=== PATIENT | female | born 1965 | race African-American/Black ===

== ENCOUNTER 2016-12-01 17:55 | Inpatient (IN) | payer OTHER ==
--- NOTE | ~2016-12-01 | DS ---
Unit #: [id number] #: [id number] Patient: EUGENE TIJERINA [id number] [facility] [address] [place] [address] [id number] MR#: [id number] NAME: EUGENE TIJERINA ROOM: [facility] Age: 51 Sex: F Admission Date: 12/01/2016 : 1965 Discharge Date: 12/04/2016 Attending Physician: Gene Be M.D. Primary Care Physician: Vik Farrar Sr., M.D. DISCHARGE SUMMARY JOB NOTE: PATIENT NAME UNDECIPHERABLE REASON FOR ADMISSION The patient is a 51-year-old white female with history of schizoaffective disorder, admitted after presenting with symptoms of increasing psychosis. HOSPITAL COURSE The patient was admitted to the [address] [place] [address] unit and placed on suicide precautions. It was learned that her last Invega Sustenna shot had not been received since early October. Accordingly, arrangements were made for the patient to receive an Invega Sustenna shot of 156 mg strength on 12/04 at the time of discharge. The patient was at that time brighter and denied suicidal or homicidal ideation or psychotic symptoms. Discharge was as per her request ordered. FINAL DIAGNOSES Schizoaffective disorder. DISPOSITION ON DISCHARGE The patient is discharged on following medications; Invega Sustenna 156 mg q.28 days, last dose given 12/04/2016. FOLLOWUP The patient will follow up through the auspices of [facility]. PROGNOSIS Fair. Dictated by... Gene Be M.D. CB/pedro TD: 12/05/2016 03:51 JOB #: [id number] Unit #: [id number] #: [id number] Patient: EUGENE TIJERINA DISCHARGE SUMMARY X Gene Be MD X DISCHARGE SUMMARY
--- NOTE | ~2016-12-01 | PA ---
Unit #: [id number] #: [id number] Patient: EUGENE TIJERINA [id number] [place] [address] [id number] MR#: [id number] NAME: EUGENE TIJERINA ROOM: 14 Age: 51 Sex: F Admission Date: 12/01/2016 : 1965 Date of Assessment: 12/02/2016 Attending Physician: Gene Be M.D. Admitting Physician: Gene Be M.D. Primary Care Physician: Vik Farrar Sr., M.D. PSYCHIATRIC ASSESSMENT IDENTIFYING INFORMATION The patient is a 51-year-old female who carries a diagnosis of schizoaffective disorder. She is admitted after she had presented to the [facility] reporting positive delusional thinking. INFORMANT(S) The patient, reliability is poor. CHIEF COMPLAINT My family is trying to kill me. HISTORY OF PRESENT ILLNESS The patient is a 51-year-old female who carries a diagnosis of schizoaffective disorder at the time of her last discharge from this facility when she was carried fro by this physician. Her medications included Depakote, Latuda. At some point along the line she has apparently been switched to Invega Sustenna but it is unclear when she last received this medication. The patient is presently homeless per report. She reports delusional thinking regarding her family stating that "they were sending people to touch me down there" pointing to her pelvic area. She also reports that she is fearful that she will have to harm her family in order to be safe herself. The patient reports no abuse of psychoactive substances. She does complain of poor sleep. The chart seems to indicate that the patient did receive her Invega shot in October of 2016. For more complete history of present illness please refer to previous dictated notes. PAST PSYCHIATRIC HISTORY Reviewed no changes. PAST MEDICAL HISTORY Reviewed no changes. MEDICATIONS 1. Invega Sustenna 2. Ibuprofen ALLERGIES None. FAMILY HISTORY Reviewed no changes. Unit #: [id number] #: [id number] Patient: EUGENE TIJERINA SOCIAL HISTORY Apart from the patient's current homelessness her social history is unchanged. MENTAL STATUS EXAMINATION At this time reveals the patient to be a well-developed, well-nourished somewhat disheveled female appearing her stated age. She is in no apparent physical distress at the time of examination. She is awake, alert, and oriented in all spheres. Her mood is mildly dysphoric. Her affect blunted and strained. Her speech is generally relevant and coherent. There are no gross deficits in memory or cognition noted. Intelligence is judged to be in the average range based on fund of knowledge. The patient is generally cooperative throughout the interview. She is currently denying suicidal or homicidal ideation. She does endorse positive psychotic and paranoid thinking. Her judgment and insight appear egregiously impaired. ASSETS AND LIABILITIES ASSETS: To be assessed. LIABILITIES: Lack of resources. ADMITTING DIAGNOSES Schizoaffective disorder. PSYCHIATRIC PLAN/TREATMENT GOALS The patient remains hospitalized for safety and stabilization. We will attempt to ascertain when and where the patient received her last Invega Sustenna dose and we will provide that medication if in fact is it due at the time of admission. In the meantime we will supplement with p.o. Invega as needed. ESTIMATED LENGTH OF STAY Five to seven days with followup to take place through the auspices of [facility]. Dictated by... Gene Be M.D. MARCI/laura TD: 12/02/2016 21:47 JOB #: [id number] PSYCHIATRIC ASSESSMENT X Gene Be MD X PSYCHIATRIC ASSESSMENT
--- NOTE | ~2016-12-01 | HP ---
Unit #: [id number] #: [id number] Patient: EUGENE TIJERINA [id number] [place] [address] [id number] MR#: [id number] NAME: EUGENE TIJERINA ROOM: 14 Age: 51 Sex: F Admission Date: 12/01/2016 : 1965 Attending Physician: Gene Be M.D. Admitting Physician: Gene Be M.D. Primary Care Physician: Vik Farrar Sr., M.D. HISTORY AND PHYSICAL HISTORY OF PRESENT ILLNESS The patient is a 51-year-old female admitted to [address] [place] [address] on 12/01/2106 for psychotic behaviors. PAST MEDICAL HISTORY 1. Anemia 2. Hypertension 3. Nicotine dependence PAST SURGICAL HISTORY 1. Bilateral tubal ligations 2. Hernia surgery 3. Cholecystectomy 4. Cyst removal from her throat SOCIAL HISTORY The patient is unemployed and homeless. She smokes one pack of cigarettes per day. FAMILY MEDICAL HISTORY Noncontributory. ALLERGIES No known drug allergies. CURRENT MEDICATIONS Invega. REVIEW OF SYSTEMS CONSTITUTIONAL: No fever or chills. HEENT: Denies any sore throat, ear pain or runny nose. CARDIOVASCULAR: Denies chest pain, irregular heart rhythm or palpitations. CHEST: Denies shortness of breath or cough. No hemoptysis. GASTROINTESTINAL: Denies nausea, vomiting, diarrhea or chronic constipation. ENDOCRINE: Denies history of increased thirst or urination. No recent significant weight loss or gain. GENITOURINARY: Denies dysuria, frequency, or hematuria. SKIN: Denies any rashes. HEMATOLOGIC: Denies history of increased bleeding or bruising. MUSCULOSKELETAL: Denies any hot, swollen joints. No generalized muscle pain. NEUROLOGIC: Denies problems with vision or speech. No frequent, severe Unit #: [id number] #: [id number] Patient: EUGENE TIJERINA headaches. No numbness, tingling or weakness in any extremities. Denies loss of bladder or bowel control. PHYSICAL EXAM GENERAL: She is awake, alert and oriented in no acute distress. VITAL SIGNS: Temperature 97.6, heart rate 69, respiration 18, blood pressure 119/86. HEIGHT: 5'9". WEIGHT: 191 pounds. SKIN: Warm and dry without rash or lesion. HEENT: Normocephalic. TMs not viewed. Oral and nasal passages clear. Conjunctivae clear. PERRLA. EOMs intact. NECK: Supple without lymphadenopathy or thyromegaly. HEART: Regular rate and rhythm without murmur. LUNGS: Clear. ABDOMEN: Soft, nontender. : Not done. EXTREMITIES: No evidence of cyanosis, clubbing or edema. Moves all without focal deficit. NEUROLOGICAL: Grossly within normal limits. Cranial Nerves: II: Visual baldwin are intact. III, IV AND : Extraocular movements are intact. Pupils are equal, round and reactive to light. V: Facial sensation is grossly normal. VII: Facial movements and expression are normal. VIII: Auditory acuity grossly intact. IX, X: Uvula is midline. Phonation is normal. XI: Patient shrugs shoulders and turns head normally. XII: Tongue protrudes in the midline. Sensory and Motor Function: Sensory and motor sensation is grossly normal. Motor: moves all extremities well. IMPRESSION 1. Psychiatric admission. 2. Anemia. 3. Hypertension. 4. Nicotine dependence. RECOMMENDATIONS Psychiatric per psychiatrist. MEDICAL: No contraindication to participate in facility activities. MEDICAL PROGNOSIS Good. MEDICAL CONDITION Stable. Dictated by... Eveline Nichols/laura TD: 12/03/2016 03:55 Unit #: [id number] #: [id number] Patient: EUGENE TIJERINA JOB #: [id number] HISTORY AND PHYSICAL X KEIRY MARCUM APRN X HISTORY AND PHYSICAL
--- NOTE | ~2016-12-01 | PN ---
Unit #: [id number] #: [id number] Patient: EUGENE TIJERINA [id number] [facility] [address] [place] [address] [id number] MR#: [id number] NAME: EUGENE TIJERINA ROOM: P122 Age: 51 Sex: F Admission Date: 12/01/2016 : 1965 Attending Physician: Gene Be M.D. Admitting Physician: Gene Be M.D. Primary Care Physician: Vik Farrar Sr., M.D. [facility] PROGRESS NOTES DATE 12/03/2016 DISCUSSION We have learned that the patient's last dose of Invega Sustenna was given in early October. We will order the Invega Sustenna injection be given and hope to discharge shortly thereafter as the patient appears significantly improved today. Dictated by... Gene Be M.D. CB/laura TD: 12/03/2016 23:50 JOB #: [id number] [facility] PROGRESS NOTES X Gene Be MD X PROGRESS NOTE
[~2016-12-01 17:55] MED LIST: ABILIFY PO; FLEXERIL PO; HCTZ PO; KETOPROFEN PO; NORVASC PO; PHENERGAN25 MG PO; RESTORIL7.5 MG; VICODIN 5/1 TAB 5/50 PO; [UNRECOGNIZED DRUG - OTHER]
[2016-12-01 23:29] LABS: URINE SOURCE CLEAN CATCH
[2016-12-01 23:41] LABS: URINE APPEARANCE CLEAR; URINE BILIRUBIN NEG (NEG); URINE BLOOD 1+ (NEG); URINE COLOR YELLOW; URINE GLUCOSE NEG (NEG); URINE KETONE NEG (NEG); URINE LEUKOCYTE ESTERASE NEG (NEG); URINE NITRATE NEG (NEG); URINE PROTEIN NEG (NEG); URINE SPECIFIC GRAVITY 1.021 (1.003-1.035); URINE UROBILINOGEN 0.2 MG/DL (NEG)
[2016-12-01 23:44] LABS: U HYALINE CASTS AUWI 0-2 /[LPF]; URINE BACTERIA AUWI 1+ (NEGATIVE); URINE SQUAMOUS EPITHELIAL CELL OCC /[HPF]
[2016-12-01 23:51] LABS: AMPHETAMINE NEG (NEG); BARBITURATES NEG (NEG); BENZODIAZEPINES NEG (NEG); COCAINE NEG (NEG); MARIJUANA NEG (NEG); OPIATES NEG (NEG); TRICYCLIC ANTIDEPRESSANTS NEG (NEG); U METHADONE NEG (NEG)
== END 2016-12-04 15:42 | disposition home or self-care (01) | DRG 885 ==
LOC: P1S 17:55
PROVIDERS: Specialist
DX: F25.9 Schizoaffective disorder, unspecified (principal); Z59.0 Homelessness; I10 Essential (primary) hypertension; D64.9 Anemia, unspecified; F17.200 Nicotine dependence, unspecified, uncomplicated; Z56.0 Unemployment, unspecified
CPT/HCPCS: 80307; 81003